=== PATIENT | male | born 2000 | race Two or more races ===

== ENCOUNTER 2022-08-27 12:55 | Emergency (ER) | payer OTHER, SELFPAY ==
[2022-08-27 13:07] VITALS: BP 134/87; PULSE 104; RESP 16; TEMP 36.8; O2SAT 100
--- NOTE | 2022-08-27 13:40 | ED.SKABFB ---
HPI - Skin/Abscess/Foreign Bdy General Chief complaint: Skin/Abscess/Foreign Body Stated complaint: rash Time Seen by Provider: 08/27/22 13:40 Source: patient, RN notes reviewed and old records reviewed Mode of arrival: ambulatory Limitations: no limitations History of Present Illness HPI narrative: 22 year old male who presents to [facility] care with complaints of rash to back, chest, and lef arm which he noted today when he woke up around 0930. Patient here stated that he wonders if he could have chicken pox. Patient is student career development specialist at [employer] and he is from [place], he states that he is not sure if he had chicken pox vaccine will have to check records. Few small vesicles noted on back which appear more like insect bites.Patient reports that areas are itchy, andrae any fevers, chills or sweats, denies any sore throat, cough or any body aches. Patient lives in apartment with 5 other students, denies any pets, denies anyone else with rash. MD complaint: rash Onset (ago): hour(s) (this morning) Quality: pruritic Treatments prior to arrival: none Related Data Allergies Allergy/AdvReac Type Severity Reaction Status Date / Time No Known Allergies Allergy Verified 08/27/22 13:34 Review of Systems Review of Systems: CONSTITUTIONAL: Denies fever, chills, or sweats. CARDIOVASCULAR: Denies chest pain, palpitations, or edema. RESPIRATORY: Denies cough or dyspnea. SKIN: Reports red raised rash to upper chest, on back and on left arm which is itchy MUSCULOSKELETAL: Denies joint pain or myalgia. NEUROLOGIC: Denies headache, numbness, or weakness. All systems reviewed & are unremarkable except as noted in HPI and below PMFSH Past Medical History Medical History (Updated 08/30/22 @ 20:55 by Charla Roque NP) No pertinent past medical history Surgical History Surgical History (Updated 08/30/22 @ 20:54 by Charla Roque NP) No history of previous surgery Social History Social History (Updated 08/30/22 @ 20:52 by Charla Roque NP) Smoking status: Never smoker Alcohol intake: current Alcohol use details: rare social Substance use type: does not use Living arrangements: with roommate(s) Occupation/Education: student Gender identity (if verbalized by the patient): Male Comments At time of signature, agree with nursing past medical, surgical, social and family history. There is no relevant family history pertinent to the presenting complaint Exam Narrative: GENERAL: Well-appearing, well-nourished, and in no acute distress. HEAD: Normocephalic, atraumatic. EYES: PERRLA, conjunctivae clear, and EOMI. ENT: Mucous membranes moist. Oropharynx without edema, erythema or lesions. NECK: Supple. No lymphadenopathy CHEST: Clear to auscultation. No respiratory distress.SAO2 100% on room air HEART: Regular rate and rhythm. SKIN: Warm, dry.? Patches of red raised rash on back,upper chest and on left arm which are itchy, few small pustules on back appear like insect bites. NEURO:? Alert and oriented x3. PSYCH: Normal mood and affect Course Course Emergency Course: Patient is aware of diagnosis, understands and agrees to treatment plan.? Anticipatory guidance given.? Patient agrees to follow-up as directed and is aware of reasons to seek care at the emergency department. Portions of this record may have been created with voice recognition software Level of Care: Express Care Visit Vital Signs Vital signs: Vital Signs Temperature 36.8 C 08/27/22 13:07 Pulse Rate 104 H 08/27/22 13:07 Respiratory Rate 16 08/27/22 13:07 Blood Pressure 134/87 08/27/22 13:07 Pulse Oximetry 100 08/27/22 13:07 Temperature 36.8 C 08/27/22 13:07 Pulse Rate 104 H 08/27/22 13:07 Respiratory Rate 16 08/27/22 13:07 Blood Pressure 134/87 08/27/22 13:07 Pulse Oximetry 100 08/27/22 13:07 Reviewed MDM - Skin/Abscess/Foreign Bdy MDM Narrative Medical decision making narrative: Does n
== END 2022-08-27 14:30 | disposition home or self-care (01) ==
PROVIDERS: Emergency Provider Registered Nurse
DX: L73.9 Follicular disorder, unspecified (principal)
CPT/HCPCS: 99213; G0463